=== PATIENT | male | born 1975 | race Caucasian/White ===

== ENCOUNTER 2020-11-16 19:21 | Emergency (ER) | payer MEDICARE, SELFPAY ==
[2020-11-16 19:28] VITALS: BP 141/90; PULSE 98; RESP 20; TEMP 36.6; O2SAT 97
--- NOTE | 2020-11-16 19:34 | DI.US.S_ITS ---
PROCEDURE: US SCROTUM INDICATIONS: RIGHT TESTICULAR PAIN TECHNIQUE: Real-time scanning was performed of the scrotum and testicles, with image documentation. Color and pulse Doppler interrogation was performed of both testicles. COMPARISON: None. FINDINGS: Right: Testicle is normal in size at 2.0 X 3.5 X 5.6 cm, and homogenous in echotexture. Normal vascularity of the left testicle. Epididymis is normal in overall size and morphology. No hydrocele or varicoceles. Overlying scrotal skin is normal in thickness. Left: STATUS POST LEFT ORCHIECTOMY Doppler: Color and pulse Doppler demonstrate normal and symmetric arterial flow in both testicles. IMPRESSION: Normal vascularity of the right testicle with no evidence of torsion or other acute finding. Status post left orchiectomy. Dictated by: Johnny Montero M.D. on 11/16/2020 at 20:19 Approved by: Johnny Montero M.D. on 11/16/2020 at 20:20
--- NOTE | 2020-11-16 20:04 | PC.NURSE ---
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 Patient reports this is the same type of pain. Ambulating with limp.
--- NOTE | 2020-11-16 21:10 | ED.MALEGU ---
HPI - Male Genitourinary General Chief complaint: Urogenital-Male Stated complaint: testicular problems Time Seen by Provider: 11/16/20 20:05 Source: patient Mode of arrival: Ambulatory History of Present Illness HPI Narrative: Patient is a 45-year-old male with history of left testicular torsion presenting today with ongoing right testicular pain and groin pain. He said when he had his left testicular torsion the actually tacked down his right testicle it was done a number of years ago. He has had intermittent pain ongoing for a few weeks it seems to be in his groin sometimes in his testicle in in his buttock. He denies any flank pain. Today he says he had significant pain brought him to tears. She does not take pain medicine including Tylenol or ibuprofen. He says he was out in the yd yesterday moving some things around he did not think that he injured or strained anything. He denies any discharge or fevers no prior history of infection. He says he does get relief when lifts the testicle Complaint: testicle pain Onset (ago): week(s) Duration: constant Location: right testicle Radiation: right inguinal region Related Data Previous Rx's Medication Instructions Recorded doxycycline hyclate 100 mg PO BID #14 cap 11/16/20 Allergies Allergy/AdvReac Type Severity Reaction Status Date / Time From ERYTHROMYCIN BASE Allergy Mild GI SYMPTOMS Uncoded 02/19/18 12:14 PENICILLIN Allergy Mild RASH Uncoded 02/19/18 12:14 CODEINE Allergy Unknown A Uncoded 02/19/18 12:14 CHILD; UNKNOWN GABAPENTIN Allergy Unknown Uncoded 02/19/18 12:14 Review of Systems Review of Systems ROS Unobtainable: All systems reviewed & are unremarkable except as noted in HPI and below Constitutional Constitutional: Denies chills, Denies fever(s), Denies headache(s), Denies lethargy and Denies weakness ENT Ears, Nose, Mouth, and Throat: Denies dizziness and Denies headache(s) Cardiovascular Cardiovascular: Denies chest pain, Denies irregular heart rhythm, Denies lightheadedness, Denies palpitations, Denies dyspnea, Denies dyspnea on exertion and Denies orthopnea Respiratory Respiratory: Denies cough, Denies dyspnea, Denies dyspnea on exertion and Denies wheezing Musculoskeletal Musculoskeletal: Denies back pain and Denies myalgias Integumentary/Breasts Skin/Breast: Denies pruritus, Denies erythema, Denies rash and Denies wounds Neurologic Neurologic: Denies dizziness, Denies headache(s) and Denies weakness Endocrine Endocrine: Denies palpitations Allergic/Immunologic Allergic/Immunologic: Denies wheezing Patient History Medical History Right testicular torsion Social History Smoking Status: Current every day smoker Smoking Status: Current every day smoker alcohol intake frequency: 3 or more drinks per day Exam Initial Vital Signs Initial Vital Signs: Vital Signs Temperature 97.8 F 11/16/20 19:28 Pulse Rate 98 H 11/16/20 19:28 Respiratory Rate 20 11/16/20 19:28 Blood Pressure 141/90 H 11/16/20 19:28 Pulse Oximetry 97 11/16/20 19:28 GENERAL: Well-appearing, well-nourished and in no acute distress. CARDIOVASCULAR: peripheral pulses in tact, cap refill <2 sec RESPIRATORY: No respiratory distress, speaks in full sentences without difficulty ABDOMEN: Soft, nontender, no guarding or rebound : No right flank pain nurse Phalen in room for exam. The right testicle is present not high riding pain in the inguinal canal but no hernia is felt. No significant swelling minimal pain over the epididymis. EXTREMITIES: Normal range of motion, no clubbing or edema. Neurovascularly intact NEUROLOGICAL: Cranial nerves II through XII grossly intact. Normal gait and speech. SKIN: Warm, dry, no petechiae, no rashes or lesions. Course Orders Ordered: ED Orders 11/16/20 19:34 US scrotum Stat Vital Signs Vital signs: Vital Signs - 8 hr 11/16/20 19:28 11/16/20 21:29 Temperature 97.8 F Pulse Rate 98 H 90 Respiratory Rate 20 14 Blood Pressure 141/90 H 136/86 Pulse Oximetry 97 97 MDM - Male Genitourinary Lab Data Attestation: I reviewed the patient's lab results. Labs: Urine Dip Bedside Urine Glucose Negative Bedside Urine Bilirubin - Negative Bedside Urine Ketone - Negative Urine Specific [place] 1.010 Bedside Urine Occult Blood - Negative Bedside Urine pH 6.0 Bedside Urine Protein - Negative Bedside Urine Urobilinogen - Negative Bedside Urine Nitrite - Negative Bedside Urine Leukocytes - Negative Esterase Imaging Data US scrotum: Radiologist's Impression: PROCEDURE: US SCROTUM INDICATIONS: RIGHT TESTICULAR PAIN TECHNIQUE: Real-time scanning was performed of the scrotum and testicles, with image documentation. Color and pulse Doppler interrogation was performed of both testicles. COMPARISON: None. FINDINGS: Right: Testicle is normal in size at 2.0 X 3.5 X 5.6 cm, and homogenous in echotexture. Normal vascularity of the left testicle. Epididymis is normal in overall size and morphology. No hydrocele or varicoceles. Overlying scrotal skin is normal in thickness. Left: STATUS POST LEFT ORCHIECTOMY Doppler: Color and pulse Doppler demonstrate normal and symmetric arterial flow in both testicles. IMPRESSION: Normal vascularity of the right testicle with no evidence of torsion or other acute finding. Status post left orchiectomy. Dictated by: Johnny Montero M.D. on 11/16/2020 at 20:19 MDM Narrative Medical decision making narrative: Patient's testicle is in the normal location not significantly tender it is self no significant swelling. He has minimal erythema. he seems to be tender in the inguinal canal may are may not be related to the surgery he had a few years back. He denies any history of STDs. Will treat him with doxycycline for possible epididymitis because he has had some pain off and on with increasing pain today. He states he cannot have NSAIDs due to GI bleeding and he does not really want Tylenol. He says it is manageable he just wanted to be sure he did have a torsion again. I strongly encouraged him to follow-up with urology and find a new PCP and return to the emergency department if it is getting worse. Discharge Plan Departure Patient Disposition: Home Clinical Impression: Pain in right testicle Instructions: DI for Testicular Pain Activity Restrictions/Additional Instructions: *You have been diagnosed with right testicular pain *What to do: Recommend wearing supportive underwear. A you think you need to see a urologist any a new primary care *Continue to take medications as directed Doxycycline 100 mg twice a day for 7 days *Follow up with your primary care provider in 2-3 days *Return to ER if you should have increasing pain, or any new, worsening or concerning symptoms Prescriptions: New doxycycline hyclate 100 mg capsule 100 mg PO BID Qty: 14 RF: 0 Referrals: Zeina Rivera MD [Non-Staff] - Cy Warren MD [Physician] -
--- NOTE | 2020-11-16 21:11 | PC.NURSE ---
standby for exam with Dr Ricci.
[2020-11-16 21:29] VITALS: BP 136/86; PULSE 90; RESP 14; O2SAT 97
== END 2020-11-16 21:30 | disposition home or self-care (01) ==
PROVIDERS: Emergency Provider Emergency Medicine
DX: N50.811 Right testicular pain (principal)
CPT/HCPCS: 76870; 81003; 99283

== ENCOUNTER 2021-11-22 23:20 | Emergency (ER) | payer MEDICARE, SELFPAY ==
[2021-11-22 23:31] VITALS: TEMP 36.6; BMI 19.6
== END 2021-11-23 01:20 | disposition left against medical advice (07) ==
PROVIDERS: Emergency Provider Emergency Medicine
DX: Z53.21 Procedure and treatment not carried out due to patient leaving prior to being seen by health care provider (principal)
CPT/HCPCS: 99281

== ENCOUNTER → 2024-09-22 09:19 | Outpatient (CLI) | payer MEDICARE, SELFPAY ==
--- NOTE | 2024-09-22 13:18 | ST.SWALLOW ---
Visit Care Team Role Provider Type Zhanna Moser PA-C Attending Provider Non-Staff Primary Care Provider Referring Provider Specialty: Medical Address: [facility] Angelita Ruelas, [facility] [address], [place], [address] Email: Modified Barium Swallow Study LICENSED AND CERTIFIED MIDWIFE Modified Barium Swallow Study Start: 09/22/24 12:10 Freq: Status: Active Protocol: Document 09/22/24 12:10 LNK (Rec: 09/22/24 13:18 LNK [id number]) Modified Barium Swallow Study Total Time Visit Start Time 10:00 Visit Stop Time 10:30 Total Visit Minutes 30 Referral Referring Physician Zhanna Moser PA-C Reason for Referral Dysphagia Setting Setting Outpatient Care Patient Information Identification Type Name,Date of Patient History Pt was seen for a Modified Barium Swallow Study at the referral of Zhanna Moser. Pt c/ o difficulty with swallowing solids and pills with a sensation of things getting stuck in the mid neck area near thyroid cartilage. He also reported that when he drinks liquids, he frequently has to burp and at times with burp up bubbly phlegm. Pt has a PMH that included GERD (dx 2 years ago), IBS and gastroparesis. Additionally pt reported a soccer injury when he was 16 that resulted in significant neck injury ( off the axis). Pt stated that he has noted difficulty with swallowing since that injury. Subjective Observations Pt was seated in the fluoroscopy chair with directions and procedures described for him. He indicated he understood and agreed to proceed. Patient Positioning Position View Lat-A/P Imaging Lateral View Textures Administered Trials Presented Thin Liquid via Spoon (IDDSI 0 ),Thin Liquid via Cup (IDDSI 0 ),Extremely Thick Liquid via Spoon (IDDSI 4),Regular (IDDSI 7) Barium Tablet Yes The IDDSI Framework Protocol: IDDSI.1 Oral Impairment Source: The Modified Barium Swallow Impairment Profile (MBSImP??) Lip Closure No labial escape Tongue Control During Bolus Hold Cohesive bolus between tongue to palatal seal Bolus Preparation/Mastication Timely & efficient chewing & mashing Bolus Transport/Lingual Motion Brisk tongue motion Oral Residue Complete oral clearance Initiation of Pharyngeal Swallow Bolus head at posterior angle of ramus (first hyoid excursion) Additional Oral Impairment Observations *OME and DKS were observed to be WNL. *Dentition natural and in good hygiene *Mastication observed with rotary chew pattern. *Good bolus formation, control and AP transition. Oral phase WNL Pharyngeal Impairment Source: The Modified Barium Swallow Impairment Profile (MBSImP??) Soft Palate Elevation No bolus between soft palate & pharyngeal wall Laryngeal Elevation Comp.sup.move.thyroid cart.w/ comp.approx.arytenoids to epiglot petiole Anterior Hyoid Excursion Partial anterior movement Epiglottic Movement Partial inversion Laryngeal Vestibular Closure Complete; no air/contrast in laryngeal vestibule Pharyngeal Stripping Wave Present - diminished Pharyngoesophageal Segment Opening Complete distention & complete duration; no obstruction of flow Tongue Base Retraction Wide column of contrast/air betwn tongue base & post. pharyngeal wall Pharyngeal Residue Collection of residue within/ on pharyngeal structures Location Diffuse (>3 areas) Additional Pharyngeal Impairment *Weak base of tongue retraction strength Observations *Partial anterior movement of the hyoid *Partial inversion of the epiglottis *Weak inferior posterior pharyngeal constrictor *Significant pooling of contrast in the valeculla *With semisolid and solid trial pooling, pt reported the sticking sensation mid-neck A/P View Textures Administered Trials Presented Thin Liquid via Spoon (IDDSI 0 ) The IDDSI Framework Protocol: IDDSI.1 A/P View Observations Pharyngeal Contraction Unilateral bulging Esophageal Clearance Upright Position Esophageal retention w/ regtrograde flow below pharyngoesoph segment Vocal Fold Function Good Esophageal Function WFL Additional A-P Observations *Mild retroflow of contrast from stomach to lower esophagus noted with thin barium *Calibrated tablet passed through esophagus as expected Clinical Impressions Dysphagia Type Pharyngeal Findings *Oral phase of swallow wnl *Pharyngeal phase dysphagia observed (see pharyngeal phase notes above) *Retroflow observed in AP view (see above notes) *Pt reported taking no medications *ST/swallow therapy recommended for base of tongue strengthening Rehabilitation Potential Excellent Patient Appropriate for Therapy Yes Recommendations Diet Comments No change in diet recommended Aspiration Precautions Recommended Precautions Upright at 90 Degrees Treatment Plan Therapy Recommendations Outpatient Speech Therapy,Base of Tongue Exercises Recommended Referrals GI Consult Additional Recommended Referrals Pt has not seen GI despite PMH and GI diagnoses Therapy Strategy Recommendations Sitting Upright (90 deg) Additional Strategies Recommended Use carrier with medications to ease flow to UES
== END ==
PROVIDERS: PCP Physician Assistant; Referring Provider Physician Assistant; Visit Provider Physician Assistant
DX: R13.13 Dysphagia, pharyngeal phase (principal)
CPT/HCPCS: 74230; 92611